=== PATIENT | female | born 1970 | race African-American/Black ===

== ENCOUNTER 2016-12-16 13:34 | Emergency (ER) | payer MEDICAID ==
[~2016-12-16] VITALS: Ht 175.3 cm; Wt 123.0 kg
[~2016-12-16 13:34] MED LIST: ALBU18HF2 IH; ATROV IH; DOCU250C89 PO; FURO40TA5 PO; HYDR-519 PO; LOSA100T3 PO; POTA20TA12 PO; TRAM50TA3 PO; WARF4TAB40 PO
[2016-12-16] MEDS ORDERED: ONDANSETRON HCL 4MG/2ML VIAL IV STA (15:50)
[2016-12-16] MEDS ORDERED: PANTOPRAZOLE SODIUM 40 MG/VIAL IV STA (15:50)
[2016-12-16] MEDS ORDERED: SODIUM CHLORIDE 0.9% 1,000 ML IV ONE (15:50)
[2016-12-16] MEDS ORDERED: MORPHINE SULFATE 4 MG/ML CPJ (NOT FOR IM USE) IV STA (15:50)
[2016-12-16 16:32] LABS: BASOPHILS % 0.7 % (0.0-2.0); EOSINOPHILS % 0.5 % (0.0-5.0); HEMATOCRIT. 35.2 % (36.0-48.0); HEMOGLOBIN. 11.2 g/dL (12.0-16.0); LYMPHOCYTES % 11.5 % (20.0-50.0); MEAN CORPUSCULAR HEMOGLOBIN 23.4 pg (28.0-32.0); MEAN CORPUSCULAR VOLUME 73.7 fL (81.0-99.0); MEAN PLATELET VOLUME 8.8 fl (7.4-10.4); MONOCYTES % 6.2 % (2.0-8.0); NEUTROPHILS % 81.1 % (40.0-76.0); PLATELET 277 x1000/uL (130-400); RED BLOOD CELL COUNT 4.77 mill/uL (4.2-5.4); RED CELL DISTRIBUTION WIDTH 19.3 % (11.6-14.6)
[2016-12-16 16:40] VITALS: BP 142/62
[2016-12-16 16:40] LABS: CHLORIDE 103 mEq/L (98-107)
[2016-12-16 16:41] LABS: INR 1.5; PARTIAL THROMBOPLASTIN TIME 32.6 sec (23.4-31.0); PROTHROMBIN TIME 16.1 sec (9.4-11.6)
[2016-12-16 16:46] LABS: CARBON DIOXIDE 31 mEq/L (21-32)
[2016-12-16] MEDS ORDERED: MAGNESIUM/ALUMINUM HYDROXIDE/SIMETHICONE 30ML UDC PO STA (16:51)
[2016-12-16 16:56] LABS: HCG SCREEN NEGATIVE
[2016-12-16] MEDS ORDERED: VISCOUS LIDOCAINE 2% 15 ML UDC MM ONE (17:00)
== END 2016-12-16 19:09 | disposition home or self-care (01) ==
LOC: ER 15:54
DX: K29.00 Acute gastritis without bleeding (principal); K27.9 Peptic ulcer, site unspecified, unspecified as acute or chronic, without hemorrhage or perforation; E11.9 Type 2 diabetes mellitus without complications; I11.0 Hypertensive heart disease with heart failure; I50.9 Heart failure, unspecified; E78.00 Pure hypercholesterolemia, unspecified; Z88.0 Allergy status to penicillin; Z88.6 Allergy status to analgesic agent; Z79.01 Long term (current) use of anticoagulants
CPT/HCPCS: 36415; 80053; 83690; 84703; 85025; 85610; 85730; 86850; 86900; 86901; 93005; 96365; 96375; 99285; C9113; J2270; J2405; J7030

== ENCOUNTER 2017-01-10 20:29 | Emergency (ER) | payer MEDICAID ==
[~2017-01-10] VITALS: Ht 175.3 cm; Wt 123.0 kg
[2017-01-10 23:21] VITALS: BP 153/73
[2017-01-11] MEDS ORDERED: MORPHINE SULFATE 10 MG/ML CPJ IM ONE (01:00)
[2017-01-11] MEDS ORDERED: ONDANSETRON 4MG ODT PO ONE (03:30)
[2017-01-11] MEDS ORDERED: HYDROCODONE/APAP 7.5/325MG 1 TAB TABLET PO ONE (03:30)
== END 2017-01-11 04:38 | disposition home or self-care (01) ==
LOC: ER 20:29
DX: M54.2 Cervicalgia (principal); M54.9 Dorsalgia, unspecified; J44.9 Chronic obstructive pulmonary disease, unspecified; I50.9 Heart failure, unspecified; Z87.891 Personal history of nicotine dependence; Z88.0 Allergy status to penicillin; Z88.6 Allergy status to analgesic agent; Z79.01 Long term (current) use of anticoagulants; W07.XXXA Fall from chair, initial encounter; Y93.89 Activity, other specified; Y92.89 Other specified places as the place of occurrence of the external cause; Y99.8 Other external cause status
CPT/HCPCS: 72040; 72100; 72125; 81025; 96372; 99284; J2270; Q0162; Z7610

== ENCOUNTER 2017-04-02 20:04 | Emergency (ER) | payer MEDICAID ==
[~2017-04-02] VITALS: Ht 175.3 cm; Wt 109.0 kg
[2017-04-02] MEDS ORDERED: SODIUM CHLORIDE 0.9% 1,000 ML IV ONE (22:02)
[2017-04-02] MEDS ORDERED: ACETAMINOPHEN WITH CODEINE 300/30MG TABLET PO ONE (22:30)
[2017-04-02 22:39] LABS: KETONES URINE NEGATIVE (NEGATIVE); LEUKOCYTE ESTERASE URINE NEGATIVE (NEGATIVE); NITRITE URINE NEGATIVE (NEGATIVE); OCCULT BLOOD URINE 1+ (NEGATIVE); PROTEIN URINE NEGATIVE (NEGATIVE); SPECIFIC GRAVITY URINE 1.014 (1.005-1.030); UROBILINOGEN URINE 0.2 E.U./dL (0.2-1.0)
[2017-04-02 22:45] LABS: BASOPHILS % 1.1 % (0.0-2.0); EOSINOPHILS % 0.6 % (0.0-5.0); HEMATOCRIT. 27.4 % (36.0-48.0); HEMOGLOBIN. 8.7 g/dL (12.0-16.0); LYMPHOCYTES % 17.2 % (20.0-50.0); MEAN CORPUSCULAR HEMOGLOBIN 23.5 pg (28.0-32.0); MEAN CORPUSCULAR VOLUME 74.3 fL (81.0-99.0); MEAN PLATELET VOLUME 8.9 fl (7.4-10.4); MONOCYTES % 5.8 % (2.0-8.0); NEUTROPHILS % 75.3 % (40.0-76.0); PLATELET 290 x1000/uL (130-400); RED BLOOD CELL COUNT 3.69 mill/uL (4.2-5.4); RED CELL DISTRIBUTION WIDTH 19.3 % (11.6-14.6)
[2017-04-02 22:49] LABS: CLARITY URINE CLEAR (CLEAR); COLOR URINE YELLOW (YELLOW)
[2017-04-02 22:49] LABS: CHLORIDE 104 mEq/L (98-107)
[2017-04-02 23:12] LABS: HCG SCREEN NEGATIVE
[2017-04-03 01:36] VITALS: BP 130/61
== END 2017-04-03 01:30 | disposition home or self-care (01) ==
LOC: ER 20:04
DX: N20.2 Calculus of kidney with calculus of ureter (principal); I50.9 Heart failure, unspecified; J44.9 Chronic obstructive pulmonary disease, unspecified; Z79.01 Long term (current) use of anticoagulants; Z88.0 Allergy status to penicillin; Z88.6 Allergy status to analgesic agent; Z98.84 Bariatric surgery status; Z98.890 Other specified postprocedural states
CPT/HCPCS: 36415; 74176; 80053; 81001; 83690; 84703; 85025; 87086; 96360; 99285; J7030; Z7610

== ENCOUNTER 2017-05-04 18:59 | Observation (INO) | payer MEDICAID ==
[~2017-05-04] VITALS: Ht 175.3 cm; Wt 113.0 kg
[2017-05-04] MEDS ORDERED: ASPIRIN 81MG TABLET PO ONE (23:15)
[2017-05-04] MEDS ORDERED: NITROGLYCERIN 0.4MG TABLET SL SL PRN (23:15)
[2017-05-04 23:24] LABS: BASOPHILS % 0.7 % (0.0-2.0); EOSINOPHILS % 0.3 % (0.0-5.0); HEMATOCRIT. 28.9 % (36.0-48.0); HEMOGLOBIN. 8.8 g/dL (12.0-16.0); MEAN CORPUSCULAR HEMOGLOBIN 21.6 pg (28.0-32.0); MEAN CORPUSCULAR VOLUME 70.9 fL (81.0-99.0); MEAN PLATELET VOLUME 8.4 fl (7.4-10.4); MONOCYTES % 7.3 % (2.0-8.0); NEUTROPHILS % 68.7 % (40.0-76.0); PLATELET 282 x1000/uL (130-400); RED BLOOD CELL COUNT 4.08 mill/uL (4.2-5.4); RED CELL DISTRIBUTION WIDTH 18.5 % (11.6-14.6)
[2017-05-04 23:34] LABS: INR 1.4; PARTIAL THROMBOPLASTIN TIME 30.2 sec (23.4-31.0); PROTHROMBIN TIME 14.7 sec (9.4-11.6)
[2017-05-04 23:44] LABS: CHLORIDE 109 mEq/L (98-107)
[2017-05-05] MEDS ORDERED: MORPHINE SULFATE 4 MG/ML CPJ (NOT FOR IM USE) IV ONE (00:30)
[2017-05-05] MEDS ORDERED: ENOXAPARIN 120MG/0.8ML SYR SUBCUT SCH (01:00)
[2017-05-05 02:58] LABS: CLARITY URINE CLEAR (CLEAR); COLOR URINE YELLOW (YELLOW); KETONES URINE TRACE (NEGATIVE); LEUKOCYTE ESTERASE URINE NEGATIVE (NEGATIVE); NITRITE URINE NEGATIVE (NEGATIVE); OCCULT BLOOD URINE 2+ (NEGATIVE); PH URINE 5.5 (4.5-8.0); PROTEIN URINE TRACE (NEGATIVE); SPECIFIC GRAVITY URINE 1.023 (1.005-1.030)
[2017-05-05 05:13] LABS: INR 1.4
[2017-05-05 09:24] VITALS: BP 138/69
[2017-05-05] MEDS ORDERED: GLIM2TAB2 PO (10:44)
[2017-05-05] MEDS ORDERED: FERR325T6 PO (10:44)
[2017-05-05] MEDS ORDERED: ERGO2000 PO (10:44)
[2017-05-05] MEDS ORDERED: CARV3.1242 PO (10:44)
[2017-05-05] MEDS ORDERED: WARF-53 PO (10:44)
[2017-05-05] MEDS ORDERED: SERT-112 PO (10:44)
[2017-05-05] MEDS ORDERED: OMEP40CA34 PO (10:44)
[2017-05-05] MEDS ORDERED: ATOR40TA70 PO (10:44)
[2017-05-05] MEDS ORDERED: SPIR25TA4 PO (10:44)
[2017-05-05] MEDS ORDERED: ALLO300T2 PO (10:44)
[2017-05-05] MEDS ORDERED: BACL-141 PO (10:44)
[2017-05-05] MEDS ORDERED: LATA2.5D2 OP (10:44)
[2017-05-05 12:15] VITALS: BP 126/59
[2017-05-05] MEDS: FUROSEMIDE 40MG/4ML VIAL IVP SCH (13:07)
[2017-05-05 13:33] VITALS: BP 138/69
[2017-05-05] MEDS ORDERED: HYDROCODONE/ACETAMINOPHEN 5/325MG TABLET PO PRN (14:15)
[2017-05-05] MEDS: HYDROCODONE/ACETAMINOPHEN 10/325MG TABLET PO PRN ×2 (15:12→21:26)
[2017-05-05 16:35] VITALS: BP 130/65
[2017-05-05] MEDS: WARFARIN SODIUM 10MG TABLET PO SCH (18:15)
[2017-05-05 18:53] LABS: CLARITY URINE CLEAR (CLEAR); COLOR URINE YELLOW (YELLOW); KETONES URINE NEGATIVE (NEGATIVE); LEUKOCYTE ESTERASE URINE NEGATIVE (NEGATIVE); NITRITE URINE NEGATIVE (NEGATIVE); OCCULT BLOOD URINE TRACE (NEGATIVE); PROTEIN URINE NEGATIVE (NEGATIVE); SPECIFIC GRAVITY URINE 1.008 (1.005-1.030); UROBILINOGEN URINE 0.2 E.U./dL (0.2-1.0)
[2017-05-05 20:09] VITALS: BP 134/58
[2017-05-05] MEDS: AMLODIPINE 5MG TABLET PO SCH (21:18)
[2017-05-05] MEDS: ATORVASTATIN CALCIUM 20MG TABLET PO SCH (21:19)
[2017-05-05] MEDS ORDERED: PNEUMOCOCCAL 23-VAL P-SAC VAC 0.5 ML IM ONE (23:45)
[2017-05-06] VITALS: BP 140/53
[2017-05-06 04:00] VITALS: BP 121/61
[2017-05-06 06:08] LABS: INR 1.6; PROTHROMBIN TIME 16.1 sec (9.4-11.6)
[2017-05-06 06:36] LABS: EOSINOPHILS % 0.9 % (0.0-5.0); HEMATOCRIT. 26.5 % (36.0-48.0); HEMOGLOBIN. 8.3 g/dL (12.0-16.0); LYMPHOCYTES % 19.3 % (20.0-50.0); MEAN CORPUSCULAR HEMOGLOBIN 22.1 pg (28.0-32.0); MEAN CORPUSCULAR VOLUME 70.2 fL (81.0-99.0); MEAN PLATELET VOLUME 9.5 fl (7.4-10.4); MONOCYTES % 8.7 % (2.0-8.0); NEUTROPHILS % 70.1 % (40.0-76.0); PLATELET 243 x1000/uL (130-400); RED BLOOD CELL COUNT 3.77 mill/uL (4.2-5.4); RED CELL DISTRIBUTION WIDTH 18.2 % (11.6-14.6)
[2017-05-06 06:40] LABS: PHOSPHORUS 3.3 mg/dL (2.5-4.9)
[2017-05-06 08:05] VITALS: BP 116/54
[2017-05-06] MEDS: AMLODIPINE 5MG TABLET PO SCH ×2 (08:55→22:28)
[2017-05-06] MEDS: FUROSEMIDE 40MG/4ML VIAL IVP SCH (08:55)
[2017-05-06] MEDS: HYDROCODONE/ACETAMINOPHEN 10/325MG TABLET PO PRN ×3 (08:56→22:27)
[2017-05-06 11:22] VITALS: BP 117/70
[2017-05-06 15:24] VITALS: BP 100/48
[2017-05-06] MEDS: WARFARIN SODIUM 10MG TABLET PO SCH (17:05)
[2017-05-06 20:00] VITALS: BP 116/54
[2017-05-06] MEDS: ATORVASTATIN CALCIUM 20MG TABLET PO SCH (22:28)
[2017-05-07] VITALS: BP 107/47
[2017-05-07 06:46] LABS: INR 1.8; PROTHROMBIN TIME 19.1 sec (9.4-11.6)
[2017-05-07 06:52] LABS: BASOPHILS % 0.6 % (0.0-2.0); EOSINOPHILS % 0.9 % (0.0-5.0); HEMATOCRIT. 27.6 % (36.0-48.0); HEMOGLOBIN. 8.6 g/dL (12.0-16.0); MEAN CORPUSCULAR HEMOGLOBIN 21.7 pg (28.0-32.0); MEAN CORPUSCULAR VOLUME 69.5 fL (81.0-99.0); MEAN PLATELET VOLUME 9.1 fl (7.4-10.4); MONOCYTES % 8.6 % (2.0-8.0); NEUTROPHILS % 64.9 % (40.0-76.0); PLATELET 248 x1000/uL (130-400); RED BLOOD CELL COUNT 3.97 mill/uL (4.2-5.4); RED CELL DISTRIBUTION WIDTH 18.7 % (11.6-14.6)
[2017-05-07 08:00] VITALS: BP 101/40
[2017-05-07 08:11] LABS: CHLORIDE 108 mEq/L (98-107)
[2017-05-07 08:14] LABS: PHOSPHORUS 3.2 mg/dL (2.5-4.9)
[2017-05-07 08:21] LABS: IMMUNOGLOBULIN A 260 mg/dL (87-352); IMMUNOGLOBULIN G 1479 mg/dL (700-1600); IMMUNOGLOBULIN M 140 mg/dL (26-217)
[2017-05-07] MEDS: AMLODIPINE 5MG TABLET PO SCH (08:47)
[2017-05-07] MEDS: FUROSEMIDE 40MG/4ML VIAL IVP SCH (08:53)
[2017-05-07] MEDS: HYDROCODONE/ACETAMINOPHEN 10/325MG TABLET PO PRN (09:07)
[2017-05-07] MEDS ORDERED: WARF10TA21 PO (09:54)
[2017-05-07] MEDS ORDERED: AMLO5TAB88 PO (09:54)
[2017-05-08] MEDS ORDERED: FUROSEMIDE 40MG TABLET PO SCH (09:00)
== END 2017-05-07 13:25 | disposition home or self-care (01) ==
LOC: ER 19:15 → INTOOBSV 05-05 00:39 → 6WST 05-05 00:39 → EDBEDREQDT 05-05 00:42 → EDBEDREQ 05-05 00:42 → EDBEDREQTM 05-05 00:42 → ENRESERV 05-05 07:30 → 6WST 05-05 09:12
PROVIDERS: ADMIT Internal Medicine; ATTEND Internal Medicine
DX: R07.89 Other chest pain (principal); R06.02 Shortness of breath; I13.0 Hypertensive heart and chronic kidney disease with heart failure and stage 1 through stage 4 chronic kidney disease, or unspecified chronic kidney disease; I50.9 Heart failure, unspecified; N18.3 Chronic kidney disease, stage 3 (moderate); D63.1 Anemia in chronic kidney disease; J44.9 Chronic obstructive pulmonary disease, unspecified; I25.10 Atherosclerotic heart disease of native coronary artery without angina pectoris; E78.5 Hyperlipidemia, unspecified; G47.33 Obstructive sleep apnea (adult) (pediatric); E66.9 Obesity, unspecified; F17.200 Nicotine dependence, unspecified, uncomplicated; Z91.19 Patient's noncompliance with other medical treatment and regimen; Z86.718 Personal history of other venous thrombosis and embolism; Z79.01 Long term (current) use of anticoagulants; Z82.49 Family history of ischemic heart disease and other diseases of the circulatory system; Z95.2 Presence of prosthetic heart valve; Z98.84 Bariatric surgery status
CPT/HCPCS: 36415; 71045; 76770; 80048; 80053; 81003; 81025; 82550; 82784; 83605; 83735; 83880; 84100; 84484; 85025; 85610; 85730; 86334; 87040; 87086; 87804; 93005; 93306; 93970; 96372; 96374; 96375; 96376; 99285; G0378; J1650; J1940; J2270; 90732

== ENCOUNTER 2017-09-12 10:49 | Emergency (ER) | payer MEDICAID ==
[~2017-09-12] VITALS: Ht 175.3 cm; Wt 91.0 kg
[~2017-09-12 10:49] MED LIST changes: -ALBU18HF2 IH; +AMLO5TAB88 PO; +ATOR40TA70 PO; -ATROV IH; +BACL-141 PO; +CARV3.1242 PO; +FERR325T6 PO; +LATA2.5D2 OP; -LOSA100T3 PO; +OMEP40CA34 PO; +SERT-112 PO; +SPIR25TA6 PO; -TRAM50TA3 PO; +WARF10TA21 PO; -WARF4TAB40 PO
[2017-09-12] MEDS ORDERED: ONDANSETRON HCL 4MG/2ML VIAL IV STA (12:30)
[2017-09-12] MEDS ORDERED: MORPHINE SULFATE 4 MG/ML CPJ (NOT FOR IM USE) IV STA ×2 (12:30→15:30)
[2017-09-12 12:58] LABS: CHLORIDE 112 mEq/L (98-107)
[2017-09-12 13:01] LABS: D-DIMER < 0.19 mg/L FEU (<0.50); INR 2.5; PROTHROMBIN TIME 26.2 sec (9.4-11.6)
[2017-09-12 17:35] VITALS: BP 117/56
== END 2017-09-12 17:46 | disposition home or self-care (01) ==
LOC: ER 12:44
DX: M54.42 Lumbago with sciatica, left side (principal); M54.41 Lumbago with sciatica, right side; I50.9 Heart failure, unspecified; F41.9 Anxiety disorder, unspecified; K59.00 Constipation, unspecified; J44.9 Chronic obstructive pulmonary disease, unspecified; N28.9 Disorder of kidney and ureter, unspecified; Z86.718 Personal history of other venous thrombosis and embolism; Z98.890 Other specified postprocedural states; Z88.0 Allergy status to penicillin; Z88.6 Allergy status to analgesic agent; Z79.899 Other long term (current) drug therapy; Z87.440 Personal history of urinary (tract) infections; Z87.09 Personal history of other diseases of the respiratory system
CPT/HCPCS: 36415; 72100; 80053; 81025; 85379; 85610; 93970; 96374; 96375; 96376; 99285; J2270; J2405; Z7610

== ENCOUNTER 2017-09-22 23:43 | Emergency (ER) | payer MEDICAID ==
[~2017-09-22] VITALS: Ht 175.3 cm; Wt 93.0 kg
[2017-09-23 00:45] VITALS: BP 136/60
== END 2017-09-23 06:59 | disposition left against medical advice (07) ==
LOC: ER 23:43
DX: M79.661 Pain in right lower leg (principal); M54.5 Low back pain; Z53.21 Procedure and treatment not carried out due to patient leaving prior to being seen by health care provider

== ENCOUNTER 2017-10-08 20:32 | Emergency (ER) | payer MEDICAID ==
[~2017-10-08] VITALS: Ht 175.3 cm; Wt 88.0 kg
[2017-10-08] MEDS ORDERED: PANTOPRAZOLE SODIUM 40 MG/VIAL IV STA (23:42)
[2017-10-08] MEDS ORDERED: MORPHINE SULFATE 4 MG/ML CPJ (NOT FOR IM USE) IV STA (23:42)
[2017-10-09 00:19] LABS: BASOPHILS % 1.2 % (0.0-2.0); EOSINOPHILS % 1.2 % (0.0-5.0); HEMATOCRIT. 34.6 % (36.0-48.0); HEMOGLOBIN. 10.9 g/dL (12.0-16.0); LYMPHOCYTES % 24.4 % (20.0-50.0); MEAN CORPUSCULAR HEMOGLOBIN 22.8 pg (28.0-32.0); MEAN CORPUSCULAR VOLUME 72.5 fL (81.0-99.0); MEAN PLATELET VOLUME 9.7 fl (7.4-10.4); MONOCYTES % 8.8 % (2.0-8.0); NEUTROPHILS % 64.4 % (40.0-76.0); PLATELET 195 x1000/uL (130-400); RED BLOOD CELL COUNT 4.77 mill/uL (4.2-5.4); RED CELL DISTRIBUTION WIDTH 22.2 % (11.6-14.6)
[2017-10-09 00:22] LABS: PLATELET ESTIMATE NORMAL
[2017-10-09 00:24] LABS: CHLORIDE 109 mEq/L (98-107)
[2017-10-09 01:48] LABS: CLARITY URINE CLOUDY (CLEAR); COLOR URINE YELLOW (YELLOW); KETONES URINE TRACE (NEGATIVE); LEUKOCYTE ESTERASE URINE 1+ (NEGATIVE); NITRITE URINE NEGATIVE (NEGATIVE); OCCULT BLOOD URINE 1+ (NEGATIVE); PH URINE 5.5 (4.5-8.0); PROTEIN URINE 1+ (NEGATIVE); SPECIFIC GRAVITY URINE 1.026 (1.005-1.030)
[2017-10-09] MEDS ORDERED: SODIUM CHLORIDE 0.9% 1,000 ML IV ONE (02:00)
[2017-10-09] MEDS ORDERED: HYDROCODONE/ACETAMINOPHEN 5/325MG TABLET PO ONE (02:15)
[2017-10-09] MEDS ORDERED: HYDROCODONE/ACETAMINOPHEN 5/325MG TABLET PO SCH (02:52)
[2017-10-09 03:11] VITALS: BP 142/67
== END 2017-10-09 03:25 | disposition home or self-care (01) ==
LOC: ER 22:33
DX: N39.0 Urinary tract infection, site not specified (principal); N20.0 Calculus of kidney; N28.9 Disorder of kidney and ureter, unspecified; F12.90 Cannabis use, unspecified, uncomplicated; Z88.0 Allergy status to penicillin; Z88.5 Allergy status to narcotic agent; Z95.2 Presence of prosthetic heart valve; Z79.01 Long term (current) use of anticoagulants; Z98.84 Bariatric surgery status; Z79.899 Other long term (current) drug therapy
CPT/HCPCS: 36415; 76700; 80053; 81003; 81025; 83690; 85025; 93005; 96374; 96375; 99285; C9113; J2270; J7030

== ENCOUNTER 2017-10-09 20:43 | Emergency (ER) | payer MEDICAID ==
[~2017-10-09] VITALS: Ht 175.3 cm; Wt 88.0 kg
[2017-10-09] MEDS ORDERED: FENTANYL CITRATE/PF 50MCG/ML 2ML VIAL IV ONE (23:30)
[2017-10-09 23:47] VITALS: BP 138/77
[2017-10-09 23:55] LABS: CLARITY URINE TURBID (CLEAR); COLOR URINE YELLOW (YELLOW); KETONES URINE TRACE (NEGATIVE); LEUKOCYTE ESTERASE URINE 1+ (NEGATIVE); NITRITE URINE NEGATIVE (NEGATIVE); OCCULT BLOOD URINE NEGATIVE (NEGATIVE); PROTEIN URINE 1+ (NEGATIVE); SPECIFIC GRAVITY URINE 1.023 (1.005-1.030)
== END 2017-10-10 03:05 | disposition home or self-care (01) ==
LOC: ER 20:43
DX: N39.0 Urinary tract infection, site not specified (principal); N18.9 Chronic kidney disease, unspecified; D50.9 Iron deficiency anemia, unspecified; N20.0 Calculus of kidney; N28.1 Cyst of kidney, acquired; I51.9 Heart disease, unspecified; J44.9 Chronic obstructive pulmonary disease, unspecified; Z88.0 Allergy status to penicillin; Z88.6 Allergy status to analgesic agent; Z79.899 Other long term (current) drug therapy; Z95.5 Presence of coronary angioplasty implant and graft; Z98.890 Other specified postprocedural states; Z87.19 Personal history of other diseases of the digestive system
CPT/HCPCS: 81003; 81025; 99284; Z7610

== ENCOUNTER 2017-11-30 20:55 | Inpatient (IN) | payer MEDICAID ==
[~2017-11-30] VITALS: Ht 175.3 cm; Wt 88.5 kg
[2017-12-01] LABS: EOSINOPHILS % 0.7 % (0.0-5.0); HEMATOCRIT. 34.7 % (36.0-48.0); HEMOGLOBIN. 10.8 g/dL (12.0-16.0); LYMPHOCYTES % 23.9 % (20.0-50.0); MEAN CORPUSCULAR HEMOGLOBIN 23.5 pg (28.0-32.0); MEAN PLATELET VOLUME 9.7 fl (7.4-10.4); MONOCYTES % 5.9 % (2.0-8.0); NEUTROPHILS % 68.5 % (40.0-76.0); PLATELET 247 x1000/uL (130-400); RED BLOOD CELL COUNT 4.57 mill/uL (4.2-5.4); RED CELL DISTRIBUTION WIDTH 20.1 % (11.6-14.6)
[2017-12-01 00:07] LABS: CHLORIDE 109 mEq/L (98-107); ETHANOL BLOOD < 10 mg/dL
[2017-12-01] MEDS ORDERED: MORPHINE SULFATE 4 MG/ML CPJ (NOT FOR IM USE) IV STA ×2 (00:20→01:58)
[2017-12-01] MEDS ORDERED: ONDANSETRON HCL 4MG/2ML INJ IV STA ×2 (00:20→01:58)
[2017-12-01 00:29] LABS: CLARITY URINE CLEAR (CLEAR); COLOR URINE YELLOW (YELLOW); KETONES URINE NEGATIVE (NEGATIVE); LEUKOCYTE ESTERASE URINE NEGATIVE (NEGATIVE); NITRITE URINE NEGATIVE (NEGATIVE); OCCULT BLOOD URINE NEGATIVE (NEGATIVE); PH URINE 6.5 (4.5-8.0); PROTEIN URINE NEGATIVE (NEGATIVE); SPECIFIC GRAVITY URINE 1.021 (1.005-1.030)
[2017-12-01 00:38] LABS: PARTIAL THROMBOPLASTIN TIME 30.9 sec (23.4-31.0); PROTHROMBIN TIME 10.4 sec (9.1-11.1)
[2017-12-01 00:42] LABS: *BENZODIAZEPINES SCREEN URINE NEGATIVE (NEGATIVE); *COCAINE SCREEN URINE NEGATIVE (NEGATIVE)
[2017-12-01 00:43] LABS: *AMPHETAMINES SCREEN URINE NEGATIVE (NEGATIVE); *BARBITURATES SCREEN URINE NEGATIVE (NEGATIVE); METHADONE URINE SCREEN NEGATIVE (NEGATIVE); OPIATES URINE SCREEN NEGATIVE (NEGATIVE); PHENCYCLIDINE URINE SCREEN NEGATIVE (NEGATIVE)
[2017-12-01 00:45] LABS: CANNABINOID URINE SCREEN PRESUMTIVE POSITIVE (NEGATIVE)
[2017-12-01] MEDS ORDERED: HEPARIN 25,000 UNITS PREMIX 500 ML IV ONE (00:45)
[2017-12-01] MEDS ORDERED: HEPARIN 5000 UNITS/ML VIAL IV ONE (00:45)
[2017-12-01] MEDS ORDERED: IPRATROPIUM/ALBUTEROL 0.5-3(2.5)MG/3ML NEB INH PRN (08:45)
[2017-12-01] MEDS ORDERED: HYDROCODONE/ACETAMINOPHEN 5/325MG TABLET PO PRN (08:45)
[2017-12-01] MEDS ORDERED: HEPARIN 25,000 UNITS PREMIX 500 ML IV SCH (08:45)
[2017-12-01] MEDS ORDERED: LORAZEPAM 2MG/ML CPJ IV PRN (08:45)
[2017-12-01] MEDS ORDERED: ACETAMINOPHEN 325MG TABLET PO PRN (08:45)
[2017-12-01] MEDS: ONDANSETRON HCL 4MG/2ML INJ IV PRN ×3 (09:57→20:43)
[2017-12-01] MEDS: MORPHINE SULFATE 4 MG/ML CPJ (NOT FOR IM USE) IV PRN ×3 (09:57→20:43)
[2017-12-01 11:10] LABS: PHOSPHORUS 2.9 mg/dL (2.5-4.9)
[2017-12-01] MEDS ORDERED: HEPARIN 5000 UNITS/ML VIAL IV PRN ×2 (13:15)
[2017-12-01] MEDS ORDERED: HEPARIN 25,000 UNITS PREMIX 500 ML IV PRN (13:15)
[2017-12-01 13:33] VITALS: BP 143/73
[2017-12-01 14:07] VITALS: BP 143/73
[2017-12-01] MEDS ORDERED: FERR325T6 MT (14:33)
[2017-12-01] MEDS ORDERED: CARV3.1242 MT (14:33)
[2017-12-01] MEDS ORDERED: METH4TAB MT (14:33)
[2017-12-01] MEDS ORDERED: CLOT15CR2 TP (14:33)
[2017-12-01] MEDS ORDERED: EZET10TA26 MT (14:33)
[2017-12-01] MEDS ORDERED: DOCU-266 PO (14:33)
[2017-12-01] MEDS ORDERED: ATOR-2 MT (14:33)
[2017-12-01] MEDS ORDERED: GABA300C PO (14:33)
[2017-12-01 16:00] VITALS: BP 122/64
[2017-12-01] MEDS: HYDROCODONE/ACETAMINOPHEN 10/325MG TABLET PO PRN (17:01)
[2017-12-01] MEDS ORDERED: PNEUMOCOCCAL 23-VAL P-SAC VAC 0.5 ML IM ONE (18:00)
[2017-12-01] MEDS: AMLODIPINE 5MG TABLET PO SCH (18:19)
[2017-12-01] MEDS: ENOXAPARIN 80MG/0.8ML SYR SUBCUT SCH (18:19)
[2017-12-01 20:00] VITALS: BP_SYST 137; BP_SYST 142; BP_DIAS 62; BP_DIAS 69
[2017-12-01] MEDS: ATORVASTATIN CALCIUM 10MG TABLET PO SCH (20:40)
[2017-12-01] MEDS: WARFARIN SODIUM 10MG TABLET PO SCH (20:42)
[2017-12-02] VITALS: BP 132/73
[2017-12-02] MEDS: ZOLPIDEM TARTRATE 5MG TABLET PO PRN ×2 (00:44→21:15)
[2017-12-02] MEDS: MORPHINE SULFATE 4 MG/ML CPJ (NOT FOR IM USE) IV PRN ×5 (02:09→21:30)
[2017-12-02 04:00] VITALS: BP 122/57
[2017-12-02 06:41] LABS: INR 1.1; PROTHROMBIN TIME 11.5 sec (9.1-11.1)
[2017-12-02 07:12] LABS: BASOPHILS % 0.8 % (0.0-2.0); EOSINOPHILS % 1.4 % (0.0-5.0); HEMATOCRIT. 34.4 % (36.0-48.0); HEMOGLOBIN. 10.9 g/dL (12.0-16.0); LYMPHOCYTES % 27.6 % (20.0-50.0); MEAN CORPUSCULAR HEMOGLOBIN 24.2 pg (28.0-32.0); MEAN CORPUSCULAR VOLUME 76.1 fL (81.0-99.0); MEAN PLATELET VOLUME 10.2 fl (7.4-10.4); MONOCYTES % 7.6 % (2.0-8.0); NEUTROPHILS % 62.6 % (40.0-76.0); PLATELET 214 x1000/uL (130-400); RED BLOOD CELL COUNT 4.52 mill/uL (4.2-5.4); RED CELL DISTRIBUTION WIDTH 19.2 % (11.6-14.6)
[2017-12-02 08:00] VITALS: BP 131/62
[2017-12-02] MEDS ORDERED: LATANOPROST 0.005% OPHTH DROPS 2.5ML BOTHEYE SCH (09:00)
[2017-12-02] MEDS: ENOXAPARIN 80MG/0.8ML SYR SUBCUT SCH ×2 (09:03→21:30)
[2017-12-02] MEDS: HYDROCODONE/ACETAMINOPHEN 10/325MG TABLET PO PRN (09:04)
[2017-12-02] MEDS: DOCUSATE SODIUM 100MG CAPSULE PO SCH (09:05)
[2017-12-02] MEDS: SERTRALINE HCL 100MG TABLET PO SCH (09:06)
[2017-12-02] MEDS: AMLODIPINE 5MG TABLET PO SCH (09:06)
[2017-12-02 12:00] VITALS: BP 108/68
[2017-12-02] MEDS: ONDANSETRON HCL 4MG/2ML INJ IV PRN (13:57)
[2017-12-02 16:15] VITALS: BP 125/53
[2017-12-02] MEDS: WARFARIN SODIUM 10MG TABLET PO SCH (16:37)
[2017-12-02 20:00] VITALS: BP 115/64
[2017-12-02] MEDS ORDERED: LATANOPROST 0.005% OPHTH DROPS 2.5ML RIGHTEYE SCH (21:00)
[2017-12-02] MEDS: ATORVASTATIN CALCIUM 10MG TABLET PO SCH (21:29)
[2017-12-03 00:17] VITALS: BP 132/73
[2017-12-03 04:00] VITALS: BP 130/82
[2017-12-03] MEDS: MORPHINE SULFATE 4 MG/ML CPJ (NOT FOR IM USE) IV PRN ×2 (05:21→09:30)
[2017-12-03] MEDS: ONDANSETRON HCL 4MG/2ML INJ IV PRN (06:19)
[2017-12-03 06:56] LABS: INR 1.7; PROTHROMBIN TIME 16.9 sec (9.1-11.1)
[2017-12-03 07:12] LABS: BASOPHILS % 0.7 % (0.0-2.0); HEMATOCRIT. 34.8 % (36.0-48.0); HEMOGLOBIN. 11.1 g/dL (12.0-16.0); LYMPHOCYTES % 24.7 % (20.0-50.0); MEAN CORPUSCULAR VOLUME 75.6 fL (81.0-99.0); MEAN PLATELET VOLUME 10.4 fl (7.4-10.4); MONOCYTES % 8.9 % (2.0-8.0); NEUTROPHILS % 64.7 % (40.0-76.0); PLATELET 185 x1000/uL (130-400); RED CELL DISTRIBUTION WIDTH 19.8 % (11.6-14.6)
[2017-12-03 08:00] VITALS: BP 132/67
[2017-12-03] MEDS: AMLODIPINE 5MG TABLET PO SCH (08:42)
[2017-12-03] MEDS: SERTRALINE HCL 100MG TABLET PO SCH (08:43)
[2017-12-03] MEDS: DOCUSATE SODIUM 100MG CAPSULE PO SCH (08:43)
[2017-12-03] MEDS: ENOXAPARIN 80MG/0.8ML SYR SUBCUT SCH (08:44)
[2017-12-03 12:00] VITALS: BP 133/85
[2017-12-03 13:55] VITALS: BP 133/85
[2017-12-03] MEDS ORDERED: ENOXAPARIN 100MG/ML SYR SUBCUT SCH (21:00)
[2017-12-09] MEDS ORDERED: POTA10CA42 MT (11:54)
[2017-12-09] MEDS ORDERED: ZOLP5TAB2 MT (11:54)
[2017-12-09] MEDS ORDERED: WARF-53 MT (11:54)
[2017-12-11] MEDS ORDERED: PANT40TA4 PO (07:59)
== END 2017-12-03 14:30 | disposition home or self-care (01) | DRG 243 ==
LOC: ER 20:55 → 6WST 12-01 00:59 → EDBEDREQ 12-01 01:18 → EDBEDREQDT 12-01 01:18 → EDBEDREQTM 12-01 01:18 → ENRESERV 12-01 11:08 → 6WST 12-01 13:18
PROVIDERS: ADMIT Internal Medicine; ATTEND Internal Medicine
DX: K21.9 Gastro-esophageal reflux disease without esophagitis (principal); E11.22 Type 2 diabetes mellitus with diabetic chronic kidney disease; I13.0 Hypertensive heart and chronic kidney disease with heart failure and stage 1 through stage 4 chronic kidney disease, or unspecified chronic kidney disease; I50.9 Heart failure, unspecified; I44.0 Atrioventricular block, first degree; K57.90 Diverticulosis of intestine, part unspecified, without perforation or abscess without bleeding; R79.1 Abnormal coagulation profile; E11.9 Type 2 diabetes mellitus without complications; J44.9 Chronic obstructive pulmonary disease, unspecified; E78.5 Hyperlipidemia, unspecified; S40.021A Contusion of right upper arm, initial encounter; X58.XXXA Exposure to other specified factors, initial encounter; F51.04 Psychophysiologic insomnia; G89.4 Chronic pain syndrome; I05.0 Rheumatic mitral stenosis; I25.10 Atherosclerotic heart disease of native coronary artery without angina pectoris; Z79.01 Long term (current) use of anticoagulants; Z79.84 Long term (current) use of oral hypoglycemic drugs; Z86.718 Personal history of other venous thrombosis and embolism; Z87.891 Personal history of nicotine dependence; Z91.14 Patient's other noncompliance with medication regimen; Z95.1 Presence of aortocoronary bypass graft; Z95.2 Presence of prosthetic heart valve; Z98.84 Bariatric surgery status; Z88.0 Allergy status to penicillin; Y93.89 Activity, other specified; Y92.89 Other specified places as the place of occurrence of the external cause; Y99.8 Other external cause status; N18.1 Chronic kidney disease, stage 1
CPT/HCPCS: 36415; 71045; 76700; 80048; 80053; 80061; 80305; 81003; 82728; 83036; 83540; 83550; 83605; 83690; 83735; 83880; 84100; 84443; 84484; 85025; 85610; 85730; 90732; 93005; 93306; 94660; 96374; 96375; 96376; 99285; G0482; J1644; J1650; J2270; J2405

== ENCOUNTER 2018-02-03 04:24 | Emergency (ER) | payer MEDICAID ==
[~2018-02-03] VITALS: Ht 175.3 cm; Wt 79.0 kg
[~2018-02-03 04:24] MED LIST changes: -AMLO5TAB88 PO; +ATOR-2 MT; -ATOR40TA70 PO; -CARV3.1242 PO; +CLOT15CR2 TP; +DOCU-266 PO; -DOCU250C89 PO; +EZET10TA26 MT; +FERR325T6 MT; -FERR325T6 PO; +GABA300C PO; -HYDR-519 PO; -OMEP40CA34 PO; +PANT40TA4 PO; +POTA10CA42 MT; -POTA20TA12 PO; -SPIR25TA6 PO; +WARF-53 MT; -WARF10TA21 PO; +ZOLP5TAB2 MT
[2018-02-03] MEDS ORDERED: ACETAMINOPHEN 325MG TABLET PO ONE (06:15)
[2018-02-03] MEDS ORDERED: HYDROCODONE/ACETAMINOPHEN 5/325MG TABLET PO ONE ×2 (07:15)
[2018-02-03 07:31] VITALS: BP 148/76
== END 2018-02-03 08:14 | disposition home or self-care (01) ==
LOC: ER 04:24
DX: S90.31XA Contusion of right foot, initial encounter (principal); I11.0 Hypertensive heart disease with heart failure; I50.9 Heart failure, unspecified; J45.909 Unspecified asthma, uncomplicated; W18.39XA Other fall on same level, initial encounter; Y93.89 Activity, other specified; Y92.89 Other specified places as the place of occurrence of the external cause; Y99.8 Other external cause status; Z98.84 Bariatric surgery status; Z95.4 Presence of other heart-valve replacement; Z79.899 Other long term (current) drug therapy; Z88.0 Allergy status to penicillin; Z88.6 Allergy status to analgesic agent
CPT/HCPCS: 73590; 73610; 73630; 81025; 99283

== ENCOUNTER 2018-05-25 05:29 | Emergency (ER) | payer MEDICAID ==
[~2018-05-25] VITALS: Ht 175.3 cm; Wt 74.0 kg
[2018-05-25] MEDS ORDERED: MORPHINE SULFATE 4 MG/ML CPJ (NOT FOR IM USE) IV STA (06:28)
[2018-05-25] MEDS ORDERED: ONDANSETRON HCL 4MG/2ML INJ IV STA (06:28)
[2018-05-25 07:12] LABS: BASOPHILS % 0.9 % (0.0-2.0); EOSINOPHILS % 0.9 % (0.0-5.0); HEMATOCRIT. 35.5 % (36.0-48.0); HEMOGLOBIN. 11.4 g/dL (12.0-16.0); LYMPHOCYTES % 19.7 % (20.0-50.0); MEAN CORPUSCULAR HEMOGLOBIN 25.6 pg (28.0-32.0); MEAN CORPUSCULAR VOLUME 80.1 fL (81.0-99.0); MEAN PLATELET VOLUME 9.4 fl (7.4-10.4); MONOCYTES % 5.4 % (2.0-8.0); NEUTROPHILS % 73.1 % (40.0-76.0); PLATELET 179 x1000/uL (130-400); RED BLOOD CELL COUNT 4.44 mill/uL (4.2-5.4); RED CELL DISTRIBUTION WIDTH 16.8 % (11.6-14.6)
[2018-05-25 07:44] LABS: CHLORIDE 109 mEq/L (98-107)
[2018-05-25 07:48] LABS: CLARITY URINE CLEAR (CLEAR); COLOR URINE YELLOW (YELLOW); KETONES URINE NEGATIVE (NEGATIVE); LEUKOCYTE ESTERASE URINE NEGATIVE (NEGATIVE); NITRITE URINE NEGATIVE (NEGATIVE); OCCULT BLOOD URINE NEGATIVE (NEGATIVE); PH URINE 6.5 (4.5-8.0); PROTEIN URINE NEGATIVE (NEGATIVE); SPECIFIC GRAVITY URINE 1.018 (1.005-1.030); UROBILINOGEN URINE 0.2 E.U./dL (0.2-1.0)
[2018-05-25 08:35] LABS: HCG SCREEN NEGATIVE
[2018-05-25] MEDS ORDERED: ONDANSETRON HCL 4MG/2ML INJ IV ONE (08:45)
[2018-05-25] MEDS ORDERED: MORPHINE SULFATE 4 MG/ML CPJ (NOT FOR IM USE) IV ONE (08:45)
[2018-05-25 09:30] VITALS: BP 158/84
== END 2018-05-25 09:55 | disposition home or self-care (01) ==
LOC: ER 05:29
DX: R10.84 Generalized abdominal pain (principal); J44.9 Chronic obstructive pulmonary disease, unspecified; I25.10 Atherosclerotic heart disease of native coronary artery without angina pectoris; I11.0 Hypertensive heart disease with heart failure; I50.9 Heart failure, unspecified; M19.90 Unspecified osteoarthritis, unspecified site; F12.10 Cannabis abuse, uncomplicated; Z98.84 Bariatric surgery status; Z88.6 Allergy status to analgesic agent; Z88.0 Allergy status to penicillin; Z79.01 Long term (current) use of anticoagulants; Z98.890 Other specified postprocedural states
CPT/HCPCS: 36415; 74176; 80053; 81003; 83690; 84703; 85025; 96374; 96375; 96376; 99284; J2270; J2405

== ENCOUNTER 2018-06-03 04:54 | Emergency (ER) | payer MEDICAID ==
[~2018-06-03] VITALS: Ht 175.3 cm; Wt 77.0 kg
[2018-06-03] MEDS ORDERED: SODIUM CHLORIDE 0.9% 1,000 ML IV ONE (08:33)
[2018-06-03] MEDS ORDERED: ONDANSETRON HCL 4MG/2ML INJ IV STA (08:33)
[2018-06-03] MEDS ORDERED: MORPHINE SULFATE 4 MG/ML CPJ (NOT FOR IM USE) IV STA (08:33)
[2018-06-03 08:51] LABS: BASOPHILS % 0.5 % (0.0-2.0); EOSINOPHILS % 1.2 % (0.0-5.0); HEMATOCRIT. 37.4 % (36.0-48.0); HEMOGLOBIN. 11.9 g/dL (12.0-16.0); LYMPHOCYTES % 28.2 % (20.0-50.0); MEAN CORPUSCULAR HEMOGLOBIN 25.4 pg (28.0-32.0); MEAN CORPUSCULAR VOLUME 80.2 fL (81.0-99.0); MEAN PLATELET VOLUME 10.3 fl (7.4-10.4); MONOCYTES % 5.5 % (2.0-8.0); NEUTROPHILS % 64.6 % (40.0-76.0); PLATELET 212 x1000/uL (130-400); RED BLOOD CELL COUNT 4.66 mill/uL (4.2-5.4); RED CELL DISTRIBUTION WIDTH 16.6 % (11.6-14.6)
[2018-06-03 08:53] LABS: CHLORIDE 108 mEq/L (98-107)
[2018-06-03 08:54] LABS: INR 1.1; PROTHROMBIN TIME 10.9 sec (9.6-11.0)
[2018-06-03 08:58] LABS: HCG SCREEN NEGATIVE
[2018-06-03 09:02] LABS: CLARITY URINE CLEAR (CLEAR); COLOR URINE YELLOW (YELLOW); KETONES URINE NEGATIVE (NEGATIVE); LEUKOCYTE ESTERASE URINE NEGATIVE (NEGATIVE); NITRITE URINE NEGATIVE (NEGATIVE); OCCULT BLOOD URINE NEGATIVE (NEGATIVE); PH URINE 7.5 (4.5-8.0); PROTEIN URINE NEGATIVE (NEGATIVE); SPECIFIC GRAVITY URINE 1.013 (1.005-1.030); UROBILINOGEN URINE 0.2 E.U./dL (0.2-1.0)
[2018-06-03] MEDS ORDERED: LACTULOSE 20G/30ML UDC PO ONE (10:30)
[2018-06-03] MEDS ORDERED: ACETAMINOPHEN 325MG TABLET PO ONE (10:30)
[2018-06-03 11:51] VITALS: BP 156/73
[2018-06-03] MEDS ORDERED: MAGNESIUM CITRATE 300ML SOLUTION PO ONE (12:00)
== END 2018-06-03 12:30 | disposition home or self-care (01) ==
LOC: ER 04:54
DX: R10.9 Unspecified abdominal pain (principal); K56.41 Fecal impaction; J44.9 Chronic obstructive pulmonary disease, unspecified; I11.0 Hypertensive heart disease with heart failure; I50.9 Heart failure, unspecified; I25.10 Atherosclerotic heart disease of native coronary artery without angina pectoris; M19.90 Unspecified osteoarthritis, unspecified site; F17.200 Nicotine dependence, unspecified, uncomplicated; Z88.0 Allergy status to penicillin; Z88.6 Allergy status to analgesic agent; Z95.1 Presence of aortocoronary bypass graft; Z98.84 Bariatric surgery status
CPT/HCPCS: 36415; 74176; 80053; 81003; 81025; 83690; 84703; 85025; 85610; 96374; 96375; 99284; J2270; J2405; J7030; Z7610

== ENCOUNTER 2018-06-27 16:16 | Emergency (ER) | payer MEDICAID ==
[~2018-06-27] VITALS: Ht 172.7 cm; Wt 75.0 kg
[2018-06-27 17:12] LABS: CLARITY URINE CLOUDY (CLEAR); COLOR URINE YELLOW (YELLOW); KETONES URINE NEGATIVE (NEGATIVE); LEUKOCYTE ESTERASE URINE NEGATIVE (NEGATIVE); NITRITE URINE NEGATIVE (NEGATIVE); OCCULT BLOOD URINE NEGATIVE (NEGATIVE); PH URINE 5.5 (4.5-8.0); PROTEIN URINE NEGATIVE (NEGATIVE); SPECIFIC GRAVITY URINE 1.019 (1.005-1.030); UROBILINOGEN URINE 0.2 E.U./dL (0.2-1.0)
[2018-06-27 17:12] LABS: BASOPHILS % 0.9 % (0.0-2.0); HEMATOCRIT. 34.6 % (36.0-48.0); LYMPHOCYTES % 30.2 % (20.0-50.0); MEAN CORPUSCULAR HEMOGLOBIN 25.3 pg (28.0-32.0); MEAN CORPUSCULAR VOLUME 79.8 fL (81.0-99.0); MEAN PLATELET VOLUME 9.3 fl (7.4-10.4); MONOCYTES % 7.9 % (2.0-8.0); PLATELET 169 x1000/uL (130-400); RED BLOOD CELL COUNT 4.34 mill/uL (4.2-5.4); RED CELL DISTRIBUTION WIDTH 16.9 % (11.6-14.6)
[2018-06-27 17:18] LABS: CHLORIDE 110 mEq/L (98-107)
[2018-06-27 17:19] LABS: PROTHROMBIN TIME 10.6 sec (9.6-11.0)
[2018-06-27 17:24] LABS: HCG SCREEN NEGATIVE
[2018-06-27] MEDS ORDERED: ONDANSETRON HCL 4MG/2ML INJ IV ONE (17:45)
[2018-06-27] MEDS ORDERED: MORPHINE SULFATE 4 MG/ML CPJ (NOT FOR IM USE) IV ONE (17:45)
[2018-06-27] MEDS ORDERED: ACETAMINOPHEN WITH CODEINE 300/30MG TABLET PO ONE (19:45)
[2018-06-27 20:04] VITALS: BP 146/72
== END 2018-06-27 20:06 | disposition home or self-care (01) ==
LOC: ER 16:16
DX: R11.2 Nausea with vomiting, unspecified (principal); R10.84 Generalized abdominal pain; J44.9 Chronic obstructive pulmonary disease, unspecified; Z98.890 Other specified postprocedural states; Z88.0 Allergy status to penicillin; Z88.6 Allergy status to analgesic agent; Z88.5 Allergy status to narcotic agent
CPT/HCPCS: 36415; 74176; 80053; 81003; 83690; 84703; 85025; 85610; 96374; 96375; 99284; J2270; J2405

== ENCOUNTER 2018-08-06 22:15 | Emergency (ER) | payer MEDICAID ==
[~2018-08-06] VITALS: Ht 175.3 cm; Wt 72.0 kg
[2018-08-06 22:40] VITALS: BP 95/67
== END 2018-08-07 02:00 | disposition left against medical advice (07) ==
LOC: ER 23:45
DX: Z53.21 Procedure and treatment not carried out due to patient leaving prior to being seen by health care provider (principal)

== ENCOUNTER 2018-10-26 13:43 | Emergency (ER) | payer MEDICAID ==
[~2018-10-26] VITALS: Ht 175.3 cm; Wt 69.0 kg
[2018-10-26 13:47] VITALS: BP 135/79
== END 2018-10-26 18:29 | disposition left against medical advice (07) ==
LOC: ER 13:43
DX: Z53.21 Procedure and treatment not carried out due to patient leaving prior to being seen by health care provider (principal)

== ENCOUNTER → 2024-11-23 | Outpatient (CLI) | payer MEDICARE, MEDICAID ==
[~2024-11-23] MED LIST changes: +BARIUM SULFATE 450ML ORAL SUSP ONE; +BENA1TAB21 MT; -CLOT15CR2 TP; -DOCU-266 PO; +DOCU-347 PO; +ERGO500013 PO; +FAMO-135 PO; -FURO40TA5 PO; -GABA300C PO; +HYDR-4001 PO; -LATA2.5D2 OP; +LATA2.5D7 EACHEYE; +OMEP40CA20 PO; +ONDA4TAB5 PO; -PANT40TA4 PO; +PANT40TA51 PO; -POTA10CA42 MT; +POTA10CA93 MT; +SUCR1TAB30 PO; -ZOLP5TAB2 MT
== END | disposition home or self-care (01) ==
LOC: CT 11-19 08:19
PROVIDERS: ATTEND Internal Medicine Gastroenterology
DX: N20.0 Calculus of kidney (principal); N26.1 Atrophy of kidney (terminal); R59.0 Localized enlarged lymph nodes; R10.84 Generalized abdominal pain; Z98.890 Other specified postprocedural states
CPT/HCPCS: 74176